=== PATIENT | female | born 1980 | race Caucasian/White ===

== ENCOUNTER 2020-03-30 22:44 | Emergency (ER) | payer OTHER, SELFPAY ==
[2020-03-30 22:48] VITALS: BP 110/71; PULSE 62; RESP 16; TEMP 36.7; O2SAT 100; BMI 25.9
--- NOTE | 2020-03-30 23:05 | PC.NURSE ---
Pt ambulating from the waiting room into lara bed 6. Pt ambulating with a xiong/steady gait. Pt reports white spots between her 4th and 5th toes on her right foot since Monday, pt reports increasing redness/itching to the top of foot at the base of her toes. Pt questioning if something bit her. Pt denies taking any Benadryl for itching. Awaiting primary MD marte.
--- NOTE | 2020-03-30 23:11 | PC.NURSE ---
PA at bedside for primary eval.
--- NOTE | 2020-03-30 23:37 | ED.GENADULT ---
HPI - General Adult General Chief complaint: General Medical Stated complaint: Foot pain Time Seen by Provider: 03/30/20 23:07 Source: patient Mode of arrival: ambulatory Limitations: no limitations History of Present Illness HPI narrative: Patient presents to ED for right foot itchiness, erythema, and white dots in between 5th and 4th toe. Patient denies any recent trauma. Patient states occurred for 4 days Related Data Previous Rx's Medication Instructions Recorded cephalexin [Keflex] 500 mg PO QID #28 cap 03/30/20 clotrimazole 1 applic TOPICAL BID 28 Days #45 g 03/30/20 Allergies Allergy/AdvReac Type Severity Reaction Status Date / Time No Known Allergies Allergy Unverified 02/06/20 16:50 Review of Systems Review of Systems: Yes all other systems are reviewed and are negative Constitutional: Constitutional: Reports as per HPI and Reports no additional constitutional complaints Eyes: Eyes: Reports as per HPI and Reports no additional eye complaints ENT: Reports system reviewed and no additional complaints, except as documented and Reports as per HPI Cardiovascular: Cardiovascular: Reports as per HPI and Reports no additional cardiovascular complaints Respiratory: Respiratory: Reports as per HPI and Reports no additional respiratory complaints Gastrointestinal: Gastrointestinal: Reports as per HPI and Reports no additional gastrointestinal complaints Musculoskeletal: Musculoskeletal: Reports no additional musculoskeletal complaints and Reports as per HPI Comments: right foot rash Neurologic: Reports system reviewed and no additional complaints, except as documented and Reports as per HPI Psychiatric: Psychiatric: Reports no additional psychiatric complaints and Reports as per HPI [facility] Past Medical History Medical History (Updated 03/30/20 @ 23:44 by SONIA Naranjo) No known health problems Social History Social History Advance Directives: No Advance Directives Information Provided: No Physical Exam Vital Signs: Vital Signs: Last Vital Signs Temp 98.0 F 03/30/20 22:48 Pulse 62 03/30/20 22:48 Resp 16 03/30/20 22:48 BP 110/71 03/30/20 22:48 Pulse Ox 100 03/30/20 22:48 Body Mass Index 25.9 Const: General: cooperative, healthy appearing, comfortable, no acute distress, well developed, alert, awake and Physically active Orientation/consciousness: oriented to person, oriented to place, oriented to time and patient oriented x3 HENMT: Head: Yes normal to inspection and Yes No palpable skull fracture present Eyes: General: appearance normal, both eyes and all related structures Visual Schultz: normal visual schultz by confrontation Neck: Neck: Yes normal visual inspection and Yes full ROM Chest: Chest palpation & inspection: normal inspection of the chest, normal palpation of entire chest wall and no localized rib tenderness Resp: Effort & Inspection: normal respiratory effort and able to speak in complete sentences Cardio: Jugular venous distension: no JVD Heart sounds: S1 normal heart sound present and S2 normal heart sound present GI: Inspection: Yes normal to inspection and No abdominal wall ecchymosis Palpation (GI): Soft to palpation, not firm, nontender, no guarding and not rigid : General: No CVA tenderness and Yes no CVA tenderness Back/Spine/Pelvis: Back: no CVA tenderness, No CVA tenderness and No back tenderness Skin: Other: rash between 4th and 5th toe on right foot positive for tinea pedis Neuro: General: oriented to person, oriented to place, oriented to time, patient oriented x3, gait normal and CN's II-XI intact bilaterally Cranial nerves: Yes CN's II-XII intact bilaterally Extrem: Other: tinea pedis in between 4th and 5th toe on right foot General: Yes normal to inspection and Yes full ROM Psych: Appearance: grossly normal and well ket Course Course Course Narrative: history physical exam indicates tinea pedis with possible mild cellulitis. Reevaluation(s) Reevaluation #1: Patient will be treated with antifungal cream and antibiotics. Time: 23:42 Medical Decision Making [facility] Narrative Medical decision making narrative: Tinea pedis Discharge Plan Discharge Clinical Impression: Tinea pedis Patient Disposition: Home, Self-Care Instructions: Athlete's Foot (ED) Additional Instructions: return to the ED immediately for worsening of rash on foot, development of red streaks, swelling of lower extremity, calf pain, fever, chills, chest pain, shortness of breath. Please follow-up with your PCP. Prescriptions: New clotrimazole 1 % cream 1 applic topical BID 28 Days Qty: 45 RF: 0 cephalexin [Keflex] 500 mg capsule 500 mg PO QID Qty: 28 RF: 0 Interventions: ED Discharge Assessment Last Done: 03/30/20 23:51 Print Language: [place]anian
== END 2020-03-30 23:51 | disposition home or self-care (01) ==
PROVIDERS: Emergency Provider Emergency Medicine
DX: B35.3 Tinea pedis (principal); M79.673 Pain in unspecified foot; Z79.899 Other long term (current) drug therapy
CPT/HCPCS: 99283

== ENCOUNTER 2021-04-17 15:26 | Emergency (ER) | payer OTHER, SELFPAY ==
[2021-04-17 15:29] VITALS: BP 113/77; PULSE 78; RESP 18; TEMP 37; O2SAT 96; BMI 29.2
--- NOTE | 2021-04-17 16:21 | ED.GENADULT ---
HPI - General Adult General Chief complaint: General Medical Stated complaint: eye pain Time Seen by Provider: 04/17/21 16:21 Source: patient Mode of arrival: ambulatory Limitations: no limitations History of Present Illness HPI narrative: Patient been vaccinated against COVID-19 in 09/09 complaining of cough body aches for last 1 week cough is mostly dry wheezing low-grade fever also complaining of redness in the eyes for last 24 hours with yellowish discharge in the morning no other family member is sick Related Data Previous Rx's Medication Instructions Recorded cephalexin 500 mg capsule (Keflex) 500 mg PO QID #28 cap 03/30/20 clotrimazole 1 % topical cream 1 applic TOPICAL BID 28 Days #45 g 03/30/20 albuterol sulfate 90 mcg/actuation 2 puff INHALATION Q4-6H PRN #8.5 g 04/17/21 aerosol inhaler (ProAir HFA) azithromycin 250 mg tablet 250 mg PO DAILY 4 Days #4 tab 04/17/21 (Zithromax) codeine 10 mg-guaifenesin 100 mg/5 10 ml PO Q4-6H PRN #237 ml 04/17/21 mL oral liquid prednisone 20 mg tablet 40 mg PO DAILY #10 tab 04/17/21 Allergies Allergy/AdvReac Type Severity Reaction Status Date / Time No Known Allergies Allergy Unverified 02/06/20 16:50 Review of Systems Review of Systems: Yes all other systems are reviewed and are negative [facility] Past Medical History Medical History No known health problems Social History Social History Advance Directives: No Advance Directives Information Provided: No Patient : No Physical Exam Vital Signs: Vital Signs: Last Vital Signs Temp 98.6 F 04/17/21 15:29 Pulse 78 04/17/21 15:29 Resp 18 04/17/21 15:29 BP 113/77 04/17/21 15:29 Pulse Ox 96 04/17/21 15:29 Body Mass Index 29.2 Appearance: Alert. Oriented X3. No acute distress. Eyes: Bilateral conjunctival injection, clear discharge ENT: Pharynx normal. Oral Mucosa moist Neck: Normal inspection. Neck supple. CVS: Normal heart rate and rhythm. Pulses normal. Respiratory: No respiratory distress. Equal air entry bilateral, no wheezing/rales/rhonchi prolonged expiration with frequent cough Abdomen: Soft and nontender. Bowel sounds are present, no mass palpable, no CVA tenderness Skin: Skin warm and dry. Normal skin color. Normal skin turgor. Extremities: No lower extremity edema. No calf tenderness Neuro: Oriented X 3. Medical Decision Making Lab Data Lab results reviewed: Yes I reviewed the patient's lab results. Labs: Lab Results 04/17/21 Range/Units 16:37 COVID-19 ([facility]) Negative (Negative) COVID-19 Clin Com See Note Discharge Plan Discharge Clinical Impression: Acute bronchitis Qualifiers: Bronchitis organism: unspecified organism Qualified Code(s): J20.9 - Acute bronchitis, unspecified Patient Disposition: Home, Self-Care Instructions: Acute Bronchitis (ED), Conjunctivitis (ED) Additional Instructions: Take medication as prescribed and follow with PCP if not better Use tobramycin eyedrops 2 drops every 4-6 hours till clear Prescriptions: New prednisone 20 mg tablet 40 mg PO DAILY Qty: 10 RF: 0 codeine-guaifenesin 10-100 mg/5 mL liquid 10 ml PO Q4-6H PRN (Reason: cough) Qty: 237 RF: 0 azithromycin [Zithromax] 250 mg tablet 250 mg PO DAILY 4 Days Qty: 4 RF: 0 albuterol sulfate [ProAir HFA] 90 mcg/actuation HFA aerosol inhaler 2 puff inhalation Q4-6H PRN (Reason: Wheezing) Qty: 8.5 RF: 0 No Action clotrimazole 1 % cream 1 applic topical BID 28 Days Qty: 45 RF: 0 cephalexin [Keflex] 500 mg capsule 500 mg PO QID Qty: 28 RF: 0 Interventions: ED Discharge Assessment Last Done: 04/17/21 17:51 Discharge Date/Time: 04/17/21 17:51
[2021-04-17 17:02] LABS: COVID-19 Test Negative (Negative)
[2021-04-17] MEDS: Benzonatate 100 MG CAPSULE 200 MG PO (17:17)
[2021-04-17] MEDS: Azithromycin 500 MG TABLET PO (17:17)
[2021-04-17] MEDS: predniSONE 20 MG TABLET 40 MG PO (17:18)
[2021-04-17] MEDS: Albuterol Sulfate 90 MCG 8 GM INHALER 4 PUFF INHALE (17:18)
[2021-04-17] MEDS: Tobramycin Sulfate 0.3% Sol Op 5 ML BTL 2 DROP EYE-BOTH (17:41)
== END 2021-04-17 17:51 | disposition home or self-care (01) ==
PROVIDERS: Emergency Provider Internal Medicine
DX: J20.9 Acute bronchitis, unspecified (principal); Z20.822 Contact with and (suspected) exposure to COVID-19
CPT/HCPCS: 36415; 87635; 99282; 99284